=== PATIENT | female | born 1995 | race African-American/Black ===

== ENCOUNTER 2017-05-17 16:01 | Emergency (ER) | payer OTHER ==
[~2017-05-17] VITALS: Ht 152.4 cm; Wt 77.3 kg
[2017-05-17 16:02] VITALS: BP 114/76; PULSE 85; RESP 16; TEMP 98.1; O2SAT 98
[2017-05-17 17:19] LABS: BACTERIA, URINE MANY /hpf; BILIRUBIN, URINE NEG (NEG); BLOOD, URINE SMALL (NEG); GLUCOSE,URINE NEG (NEG); KETONE, URINE NEG (NEG); MUCUS URINE MOD /lpf (OCC); NITRITE,URINE NEG (NEG); PH, URINE 5.5 (5.0-8.5); SQUAMOUS EPITHELIAL CELL URINE 18 /hpf (0-5); URINE COLOR YELLOW (YELLW/STRAW); URINE LEUKOCYTE ESTERASE LARGE (NEG); WHITE BLOOD CELL CLUMPS OCC
--- NOTE | 2017-05-17 17:33 | PD ---
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 Patient denies urinary symptoms. Patient states her boyfriend was tested that was negative for STD. Patient states he is only partner currently. States she thought she maybe had a yeast infection last week and treated herself with [id number] Monistat, but since that time has developed more vaginal discharge and painful bumps at the base of the vulva. Patient denies abdominal pain, cramping, or urinary symptoms. She has no known drug allergies. PFSH Past Medical History ?: Not LMP: has IUD Social History Alcohol Use: No Tobacco Use: No Substance Use: No Allergies-Medications (Allergen,Severity, Reaction): Coded Allergies: No Known Allergies (Unverified , 05/17/17) Reported Meds & Prescriptions Reported Meds & Active Scripts Active Keflex (Cephalexin) 500 Mg Cap 500 Mg PO Q8H 7 Days Review of Systems Except as stated in HPI: all other systems reviewed are Neg General / Constitutional: No: Fever, Chills Eyes: No: Visual changes HENT: No: Headaches Cardiovascular: No: Chest Pain or Discomfort Respiratory: No: Shortness of Breath Gastrointestinal: No: Abdominal Pain Genitourinary: Positive: Discharge, Other, No: Urgency, Frequency, Dysuria, Pelvic Pain, Flank Pain Musculoskeletal: No: Pain Skin: No Rash Neurologic: No: Weakness Psychiatric: No: Depression Endocrine: No: Polydipsia Hematologic/Lymphatic: No: Easy Bruising Physical Exam Narrative GENERAL: Patient appears in no obvious distress. SKIN: Warm and dry. Appears normal turgor. See PELVIC. HEAD: Atraumatic. Normocephalic. EYES: Pupils equal and round. No scleral icterus. No injection or drainage. ENT: No nasal bleeding or discharge. Mucous membranes pink and moist. Thanks is clear. Airway is patent. NECK: Trachea midline. No JVD. CARDIOVASCULAR: Regular rate and rhythm. RESPIRATORY: No accessory muscle use. Clear to auscultation. Breath sounds equal bilaterally. GASTROINTESTINAL: Abdomen soft, non-tender, nondistended. Hepatic and splenic margins not palpable. PELVIC: Outer labia appear normal other than some suspicious lesions on bilateral lower labial region consistent with herpetic lesions. Pelvic exam shows yellowish green discharge, but minimal friability. No significant pain with cervical motion. Wet prep obtained and sent to the lab. MUSCULOSKELETAL: Extremities without clubbing, cyanosis, or edema. No obvious deformities. NEUROLOGICAL: Awake and alert. No obvious cranial nerve deficits. Motor grossly within normal limits. Five out of 5 muscle strength in the arms and legs. Normal speech. PSYCHIATRIC: Appropriate mood and affect; insight and judgment normal. Data Data Last Documented VS Vital Signs Date Time Temp Pulse Resp B/P (MAP) Pulse Ox O2 Delivery O2 Flow Rate FiO2 05/17/17 16:02 98.1 85 16 114/76 (89) 98 Orders Orders Ed Urine Pregnancytest Poc (05/17/17 16:17) Urinalysis - C+S If Indicated (05/17/17 16:17) Urine Culture (05/17/17 16:35) Gc And Chlamydia Pcr (05/17/17 17:28) Wet Prep Profile (05/17/17 17:28) Ceftriaxone Inj (Rocephin Inj) (05/17/17 18:00) Azithromycin (Zithromax) (05/17/17 18:00) Acyclovir (Zovirax) (05/17/17 18:00) Labs Laboratory Tests Test 05/17/17 16:35 05/17/17 17:53 Urine Color YELLOW Urine Turbidity HAZY Urine pH 5.5 Urine Specific [place] 1.016 Urine Protein 30 mg/dL Urine Glucose (UA) NEG mg/dL Urine Ketones NEG mg/dL Urine Occult Blood SMALL Urine Nitrite NEG Urine Bilirubin NEG Urine Urobilinogen 4.0 MG/DL Urine Leukocyte Esterase LARGE Urine RBC 20 /hpf Urine WBC /hpf Urine WBC Clumps OCC Urine Squamous Epithelial Cells 18 /hpf Urine Bacteria MANY /hpf Urine Mucus MOD /lpf Microscopic Urinalysis Comment CULTURE INDICATED Clue Cells (Wet Prep) NONE SEEN Vaginal Trichomonas (Wet Prep) NONE SEEN Vaginal Yeast (Wet Prep) NONE SEEN MDM Medical Decision Making Medical Screen Exam Complete: Yes Emergency Medical Condition: Yes Differential Diagnosis STD. Herpes. Bacterial vaginosis. Urinary tract infection. Narrative Course Patient is medically stable. Urinalysis suggestive of urinary tract infection. Urinary culture is pending. Wet prep sent to the lab. Patient will be treated empirically with acyclovir 800 mg by mouth 5 times daily for 7 days. Patient also given Rocephin 1000 mg IM. Also azithromycin 1200 mg by mouth 1. Wet preps suggest no bacterial vaginosis. Be continued on Keflex 500 mg 3 times a day 7 days. Recommended close follow-up with [facility] in the next week to ensure resolution of symptoms. 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
[2017-05-17] MEDS ORDERED: AZITHROMYCIN 600 MG TAB PO ONE (18:00)
[2017-05-17] MEDS ORDERED: ACYCLOVIR 800 MG TAB PO ONE (18:00)
[2017-05-17] MEDS ORDERED: CEPH-460 PO (18:38)
[2017-05-17] MEDS ORDERED: ACYC800T PO (18:43)
== END 2017-05-17 19:29 | disposition home or self-care (01) ==
LOC: NEPD 16:01
DX: N39.0 Urinary tract infection, site not specified (principal); A60.00 Herpesviral infection of urogenital system, unspecified
CPT/HCPCS: 81001; 84703; 87086; 87210; 87491; 87591; 96372; 99284; J0696